=== PATIENT | male | born 1980 | race Two or more races ===

== ENCOUNTER 2016-06-01 18:10 | Inpatient (IN) | payer OTHER ==
[~2016-06-01] VITALS: Ht 167.6 cm; Wt 128.6 kg
[2016-06-01 19:09] LABS: BASOPHIL COUNT 0.1 K/uL (0-0.1); EOSINOPHIL (%) 0.6 % (0-5); EOSINOPHIL COUNT 0.1 K/uL (0-0.3); HEMATOCRIT 48.6 % (38.0-50.0); IMMATURE GRANULOCYTE (%) 1.1 % (0.0-0.7); IMMATURE GRANULOCYTE COUNT 0.3 K/uL; INSTRUMENT ABS NEUTROPHIL CT 21.3 K/uL; LYMPHOCYTE COUNT 1.9 K/uL (1.0-2.8); MCH 27.5 PG (29.0-34.0); MCHC 31.1 G/DL (30.0-36.0); MCV 88.5 FL (86-99); MEAN PLAT.VOLUME 10.2 uM^3 (9.0-12.4); MONOCYTE (%) 2.5 % (3-12); MONOCYTE COUNT 0.6 K/uL (0-0.8); NEUTROPHIL (%) 87.7 % (45-76); NEUTROPHIL COUNT 21.3 K/uL (1.8-6.4); PLATELET COUNT 309 K/uL (156-360); RBC DIS.WIDTH-CV 13.7 % (11.8-14.6); RBC DIS.WIDTH-SD 44.4 % (39-53); RED BLOOD COUNT 5.49 M/uL (4.00-5.50); WHITE BLOOD COUNT 24.3 K/uL (4.1-10.2)
[2016-06-01 19:20] LABS: CHLORIDE 106 mEq/L (99-109); POTASSIUM 3.6 mEq/L (3.7-5.4); SODIUM 142 mEq/L (136-147)
[2016-06-01 19:21] LABS: GLUCOSE 196 mg/dL (70-99)
[2016-06-01 19:23] LABS: ANION GAP 13 MEQ/L (2-14)
[2016-06-01 19:24] LABS: SERUM ETHYL ALCOHOL < 10 mg/dL
[2016-06-01 19:26] LABS: UREA NITROGEN (BUN) 12 mg/dL (9-23)
[2016-06-01 19:27] LABS: GFR ESTIMATE (CALCULATED) > 59 mL/min/
[2016-06-02 05:41] LABS: ADD MIUA? NO; BILIRUBIN NEGATIVE; BLOOD NEGATIVE; COLOR YELLOW ((YELLOW)); GLUCOSE (STRIP) 150; KETONES NEGATIVE; LEUKOCYTES NEGATIVE; NITRITE NEGATIVE; PROTEIN (STRIP) 30; SPECIFIC GRAVITY 1.019 (1.000-1.030); UCUL ADDED? NO; UROBILINOGEN 0.2 MG/DL (0.2-1.0)
[2016-06-02 06:01] LABS: ADD MEDTOX COMMENT Y; AMPHETAMINE NEGATIVE (500 ng/mL); BARBITURATES NEGATIVE (200 ng/mL); BENZODIAZEPINES NEGATIVE (150 ng/mL); COCAINE PRESUMPTIVE POSITIVE (150 ng/mL); INTERNAL CONTROLS VALID? YES; METHADONE NEGATIVE (200 ng/mL); METHAMPHETAMINE NEGATIVE (500 ng/mL); OPIATES (MORPHINE) NEGATIVE (100 ng/mL); OXYCODONE NEGATIVE (100 ng/mL); PHENCYCLIDINE NEGATIVE (25 ng/mL); PROPOXYPHENE NEGATIVE (300 ng/mL); THC CANNABINOIDS NEGATIVE (50 ng/mL); TRICYCLIC ANTIDEPRESSANTS NEGATIVE (300 ng/mL)
[2016-06-02 06:11] LABS: EOSINOPHIL (%) 0 % (0-5); HEMATOCRIT 46.1 % (38.0-50.0); IMMATURE GRANULOCYTE (%) 0.3 % (0.0-0.7); IMMATURE GRANULOCYTE COUNT 0.1 K/uL; INSTRUMENT ABS NEUTROPHIL CT 16.9 K/uL; LYMPHOCYTE COUNT 0.9 K/uL (1.0-2.8); MCH 27.5 PG (29.0-34.0); MCHC 31.5 G/DL (30.0-36.0); MCV 87.5 FL (86-99); MEAN PLAT.VOLUME 10.2 uM^3 (9.0-12.4); MONOCYTE (%) 2.1 % (3-12); MONOCYTE COUNT 0.4 K/uL (0-0.8); NEUTROPHIL (%) 92.6 % (45-76); NEUTROPHIL COUNT 16.9 K/uL (1.8-6.4); PLATELET COUNT 279 K/uL (156-360); RBC DIS.WIDTH-SD 44.7 % (39-53); RED BLOOD COUNT 5.27 M/uL (4.00-5.50); WHITE BLOOD COUNT 18.3 K/uL (4.1-10.2)
[2016-06-02 06:21] LABS: CHLORIDE 105 mEq/L (99-109); POTASSIUM 4.2 mEq/L (3.7-5.4); SODIUM 139 mEq/L (136-147)
[2016-06-02 06:23] LABS: GLUCOSE 163 mg/dL (70-99)
[2016-06-02 06:24] LABS: ANION GAP 12 MEQ/L (2-14)
[2016-06-02 06:26] LABS: GFR ESTIMATE (CALCULATED) > 59 mL/min/
[2016-06-02 06:27] LABS: UREA NITROGEN (BUN) 12 mg/dL (9-23)
[2016-06-02 16:10] VITALS: BP 125/69
[2016-06-02 16:24] VITALS: BP 125/69
[2016-06-03 00:13] VITALS: BP 117/68
[2016-06-03 03:59] VITALS: BP 135/77
[2016-06-03 07:47] VITALS: BP 126/68
[2016-06-03 07:56] LABS: BASOPHIL COUNT 0.1 K/uL (0-0.1); EOSINOPHIL (%) 0.9 % (0-5); EOSINOPHIL COUNT 0.2 K/uL (0-0.3); HEMATOCRIT 39.4 % (38.0-50.0); IMMATURE GRANULOCYTE (%) 0.5 % (0.0-0.7); IMMATURE GRANULOCYTE COUNT 0.1 K/uL; LYMPHOCYTE COUNT 2.3 K/uL (1.0-2.8); MCH 27.3 PG (29.0-34.0); MCHC 30.7 G/DL (30.0-36.0); MCV 88.9 FL (86-99); MEAN PLAT.VOLUME 10.8 uM^3 (9.0-12.4); MONOCYTE (%) 3.2 % (3-12); MONOCYTE COUNT 0.5 K/uL (0-0.8); NEUTROPHIL (%) 81.8 % (45-76); PLATELET COUNT 239 K/uL (156-360); RBC DIS.WIDTH-CV 14.3 % (11.8-14.6); RBC DIS.WIDTH-SD 46.1 % (39-53); RED BLOOD COUNT 4.43 M/uL (4.00-5.50); WHITE BLOOD COUNT 17.1 K/uL (4.1-10.2)
[2016-06-03 12:39] VITALS: BP 130/73
[2016-06-03 15:58] VITALS: BP 128/70
[2016-06-03 19:52] VITALS: BP 132/69
[2016-06-04] VITALS (7 sets, daily range): BP systolic 121–140; BP diastolic 67–88
[2016-06-04] MEDS ORDERED: METRONIDAZOLE500 MG PO (11:37)
[2016-06-04] MEDS ORDERED: CEFDINIR300 MG PO (11:37)
[2016-06-05 08:46] VITALS: BP 135/68
[2016-06-05 10:14] LABS: HEMATOCRIT 37.6 % (38.0-50.0); MCH 27.7 PG (29.0-34.0); MCHC 31.6 G/DL (30.0-36.0); MCV 87.4 FL (86-99); MEAN PLAT.VOLUME 10.5 uM^3 (9.0-12.4); PLATELET COUNT 299 K/uL (156-360); RBC DIS.WIDTH-CV 13.9 % (11.8-14.6)
[2016-06-05 10:20] LABS: WHITE BLOOD COUNT 11.1 K/uL (4.1-10.2)
[2016-06-05 10:26] LABS: ANION GAP 6 MEQ/L (2-14); CHLORIDE 104 MEQ/L (99-109); GFR ESTIMATE (CALCULATED) > 59 mL/min/; GLUCOSE 102 mg/dL (70-99); SAMPLE HEMOLYSIS CHECK 0; SAMPLE ICTERIC CHECK 0; SAMPLE LIPEMIA CHECK 0; SODIUM 140 MEQ/L (136-147); UREA NITROGEN (BUN) 9 mg/dL (9-23)
[2016-06-05 17:08] VITALS: BP 149/77
[2016-06-05 19:30] VITALS: BP 143/71
[2016-06-06] VITALS: BP 133/67
[2016-06-06 07:59] VITALS: BP 129/77
[2016-06-06] MEDS ORDERED: PREDNISONE10 MG PO (11:12)
[2016-06-06 11:22] LABS: POINT-OF-CARE USER ID 603211116
== END 2016-06-06 17:58 | DRG 917 ==
LOC: EME 18:10 → 5SOUTH 20:32 → EDOF 20:32 → 5SOUTH 06-02 16:15
PROVIDERS: Emergency Medicine; Family Medicine; Hospitalist; Internal Medicine; Nurse Practitioner Adult Health
DX: T40.1X1A Poisoning by heroin, accidental (unintentional), initial encounter (principal); A41.9 Sepsis, unspecified organism; J69.0 Pneumonitis due to inhalation of food and vomit; J96.00 Acute respiratory failure, unspecified whether with hypoxia or hypercapnia; E87.2 Acidosis; E66.01 Morbid (severe) obesity due to excess calories; F17.200 Nicotine dependence, unspecified, uncomplicated
CPT/HCPCS: 71010; 71020; 80048; 81003; 82948; 83605; 84443; 84999; 85025; 85027; 87040; 93005; 94640; 94640 76; 94760; 94799; 99202; 99281; 99285; G0480; J0456; J0696; J1644; J1885; J2310; J2543; J7030; J7050; J7512; S0030

== ENCOUNTER 2016-06-06 21:10 | Inpatient (IN) | payer OTHER ==
[~2016-06-06] VITALS: Ht 167.6 cm; Wt 124.8 kg
[~2016-06-06 21:10] MED LIST: CEFDINIR300 MG PO; METRONIDAZOLE500 MG PO; PREDNISONE10 MG PO
[2016-06-06 22:55] LABS: CHLORIDE 104 mEq/L (99-109); POTASSIUM 4.1 mEq/L (3.7-5.4); SODIUM 140 mEq/L (136-147)
[2016-06-06 22:57] LABS: GLUCOSE 128 mg/dL (70-99)
[2016-06-06 22:58] LABS: ANION GAP 11 MEQ/L (2-14)
[2016-06-06 23:01] LABS: GFR ESTIMATE (CALCULATED) > 59 mL/min/
[2016-06-06 23:02] LABS: UREA NITROGEN (BUN) 11 mg/dL (9-23)
[2016-06-06 23:07] LABS: TROP-I INTERPRETATION NEGATIVE; TROPONIN-I < 0.01 ng/mL (0.0-0.30)
[2016-06-06 23:45] LABS: ABS NEUTROPHIL COUNT 14.2; EOSINOPHIL ABS CT 0.2; HEMATOCRIT 40.4 % (38.0-50.0); INSTRUMENT ABS NEUTROPHIL CT 14.9 K/uL; MCH 27.3 PG (29.0-34.0); MCHC 31.9 G/DL (30.0-36.0); MCV 85.6 FL (86-99); MEAN PLAT.VOLUME 9.7 uM^3 (9.0-12.4); PLAT.SUFFICIENCY ADEQUATE; PLATELET COUNT 358 K/uL (156-360); RBC DIS.WIDTH-CV 13.6 % (11.8-14.6); RBC DIS.WIDTH-SD 42.4 % (39-53); RED BLOOD COUNT 4.72 M/uL (4.00-5.50)
[2016-06-06 23:53] LABS: WHITE BLOOD COUNT 20.3 K/uL (4.1-10.2)
[2016-06-07 14:18] VITALS: BP 134/67
[2016-06-07 19:34] VITALS: BP 119/68
[2016-06-08] VITALS (7 sets, daily range): BP systolic 132–153; BP diastolic 70–85
[2016-06-08 06:43] LABS: HEMATOCRIT 41.7 % (38.0-50.0); MCHC 31.2 G/DL (30.0-36.0); MCV 86.7 FL (86-99); MEAN PLAT.VOLUME 9.7 uM^3 (9.0-12.4); PLATELET COUNT 379 K/uL (156-360); RBC DIS.WIDTH-CV 13.9 % (11.8-14.6); RBC DIS.WIDTH-SD 44.1 % (39-53); RED BLOOD COUNT 4.81 M/uL (4.00-5.50); WHITE BLOOD COUNT 16.4 K/uL (4.1-10.2)
[2016-06-08 08:48] LABS: EOSINOPHIL ABS CT 0.5; INSTRUMENT ABS NEUTROPHIL CT 8.7 K/uL
[2016-06-09 04:34] VITALS: BP 151/96
[2016-06-09 07:11] LABS: HEMATOCRIT 40.4 % (38.0-50.0); MCH 27.7 PG (29.0-34.0); MCHC 31.9 G/DL (30.0-36.0); MCV 86.9 FL (86-99); MEAN PLAT.VOLUME 9.6 uM^3 (9.0-12.4); PLATELET COUNT 380 K/uL (156-360); RBC DIS.WIDTH-CV 14.2 % (11.8-14.6); RBC DIS.WIDTH-SD 44.4 % (39-53); RED BLOOD COUNT 4.65 M/uL (4.00-5.50); WHITE BLOOD COUNT 15.4 K/uL (4.1-10.2)
[2016-06-09 08:05] VITALS: BP 135/87
[2016-06-09 08:06] LABS: EOSINOPHIL ABS CT 0.5; INSTRUMENT ABS NEUTROPHIL CT 7.7 K/uL; PLAT.SUFFICIENCY ADEQUATE
[2016-06-09 08:17] VITALS: BP 156/74
[2016-06-09 11:17] VITALS: BP 134/71
[2016-06-09 15:03] VITALS: BP 138/69
[2016-06-09 23:25] VITALS: BP 128/68
[2016-06-10] MEDS ORDERED: PREDNISONE10 MG PO (07:30)
[2016-06-10 07:49] VITALS: BP 121/79
[2016-06-10] MEDS ORDERED: PROVENTIL HFA6.7 GM IH (10:01)
[2016-06-10] MEDS ORDERED: CEFTIN500 MG PO (10:54)
[2016-06-10] MEDS ORDERED: METRONIDAZOLE500 MG PO (10:54)
== END 2016-06-10 14:08 | DRG 177 ==
LOC: EME → EDBD 21:10 → EDOF 06-07 02:35 → 5SOUTH 06-07 02:35
PROVIDERS: Emergency Medicine; Nurse Practitioner Adult Health
DX: J69.0 Pneumonitis due to inhalation of food and vomit (principal); J96.01 Acute respiratory failure with hypoxia; Z68.41 Body mass index [BMI] 40.0-44.9, adult; F11.10 Opioid abuse, uncomplicated; F17.210 Nicotine dependence, cigarettes, uncomplicated; E66.9 Obesity, unspecified; F41.9 Anxiety disorder, unspecified; Z56.0 Unemployment, unspecified
CPT/HCPCS: 71020; 71275; 80048; 83605; 83880; 84484; 85025; 85379; 87040; 87070; 87205; 93005; 94640; 94640 76; 94667; 94668; 94760; 94799; 99202; 99281; 99285; J0692; J0696; J1644; J1885; J1956; J7050; J7512; S0030